=== PATIENT | male | born 1970 | race Caucasian/White ===

== ENCOUNTER 2021-03-15 06:52 | Emergency (ER) | payer BC ==
[~2021-03-15] VITALS: Ht 180.3 cm; Wt 88.6 kg
[2021-03-15 08:02] LABS: APTT 28 SECONDS (22-32)
[2021-03-15 08:05] LABS: BASOPHILS # (AUTO) 0.1 X10'3 (0-0.2); BASOPHILS % (AUTO) 0.5 % (0-1); EOSINOPHILS % (AUTO) 0.2 % (0-6); HEMATOCRIT 45.7 % (42.0-52.0); HEMOGLOBIN 15.3 g/dl (14.0-17.9); LYMPHOCYTES # (AUTO) 1.7 X10'3 (1.1-4.8); LYMPHOCYTES % (AUTO) 15.5 % (21-51); MEAN CORPUSCULAR HEMOGLOBIN 28.6 PG (27.0-31.0); MEAN CORPUSCULAR HGB CONC 33.6 g/dL (33.0-36.5); MEAN CORPUSCULAR VOLUME 85.1 FL (78-98); MEAN PLATELET VOLUME 8.4 FL (7.4-10.4); MONOCYTES # (AUTO) 0.7 X10'3 (0-0.9); MONOCYTES % (AUTO) 6.3 % (2-12); NEUTROPHILS # (AUTO) 8.6 X10'3 (1.8-7.7); NEUTROPHILS % (AUTO) 77.5 % (42-75); PLATELET COUNT 246 X10'3 (140-440); RED BLOOD COUNT 5.37 X10'6 (4.70-6.10); RED CELL DISTRIBUTION WIDTH 15.9 % (11.5-14.5); WHITE BLOOD COUNT 11.1 X10'3 (4.5-11.0)
[2021-03-15 08:10] LABS: ALANINE AMINOTRANSFERASE 35 U/L (12-78); ALBUMIN 4.1 G/DL (3.4-5.0); ALBUMIN/GLOBULIN RATIO 1.1 (1.1-1.5); ALKALINE PHOSPHATASE 55 IU/L (46-116); ANION GAP 14 (8-16); ASPARTATE AMINO TRANSFERASE 20 U/L (10-37); BILIRUBIN,TOTAL 0.8 MG/DL (0.1-1.0); BLOOD UREA NITROGEN 22 MG/DL (7-18); BUN/CREATININE RATIO 13.8 (5.4-32.0); CALCIUM 8.6 MG/DL (8.5-10.1); CHLORIDE 97 MMOL/L (99-107); GLUCOSE 112 MG/DL (70-104); SODIUM 137 MMOL/L (135-145); TOTAL CARBON DIOXIDE 25.7 MMOL/L (24-32); TOTAL PROTEIN 7.8 G/DL (6.4-8.2); eGFR 46 ML/MIN
[2021-03-15] MEDS ORDERED: normal saline 1000ml 1,000 ML IV ONE ×2 (08:20)
[2021-03-15] MEDS ORDERED: POTASSIUM BICARB 20meq eff tab 20 MEQ TABLET.EFF PO ONE (08:25)
[2021-03-15 08:56] LABS: ETHANOL 0.084 GM/DL (0.0-0.010); MAGNESIUM 2.2 MG/DL (1.5-2.4)
--- NOTE | 2021-03-15 09:23 | NUR ---
Bedside pacemaker interrogation performed.
--- NOTE | 2021-03-15 10:06 | NUR ---
[facility] PACEMAKER REPORT SHOWS NO SHOCK DELIVERED. PT IS IN ATRIAL FLUTTER STARTING AT 0700 THIS MORNING.
[2021-03-15 10:55] VITALS: BP 102/56
== END 2021-03-15 10:58 | disposition home or self-care (01) ==
LOC: ER 06:52
DX: R07.89 Other chest pain (principal); E87.6 Hypokalemia; I48.91 Unspecified atrial fibrillation; Z95.0 Presence of cardiac pacemaker
CPT/HCPCS: 36415; 80053; 80320; 83735; 85025; 85610; 85730; 93005; 96360; 99284; J7030